=== PATIENT | male | born 1995 | race Caucasian/White ===

== ENCOUNTER 2017-04-28 11:08 | Emergency (ER) | payer OTHER ==
[~2017-04-28] VITALS: Ht 165.1 cm; Wt 89.0 kg
[2017-04-28 11:11] VITALS: Ht 165.1 cm; Wt 89.0 kg
[2017-04-28] MEDS ORDERED: KETOROLAC 60 MG INJ IM STA (11:49)
[2017-04-28] MEDS ORDERED: CLIN-73 PO (11:58)
[2017-04-28] MEDS ORDERED: HYDR-906 PO (11:58)
[2017-04-28] MEDS ORDERED: NAPR-688 PO (11:58)
[2017-04-28] MEDS ORDERED: morphine 10 MG INJ IM ONE (12:00)
[2017-04-28] MEDS ORDERED: DEXAMETHASONE (1 MG/ML PO SYG) PO ONE (12:00)
--- NOTE | 2017-04-28 12:26 | ERD ---
ER Documentation Chief Complaint Date/Time DATE: 04/28/17 TIME: 12:[address] x 3 days HPI This 21-year-old male presents with increasing sore throat 2 days. He is finding it difficult to speak now. He still swallowing his own secretions but is painful to do so. Says that he gets very bad tonsillitis about every 2 years. For this 1 he had gone to [facility] earlier because he thought it might be STD related and was given azithromycin as well as Rocephin. He has not been discharged with any antibiotics and he still has pain. No fevers. ROS All systems reviewed and are negative except as per history of present illness. Medications Home Meds Active Scripts Naproxen* (Naproxen*) 500 Mg Tablet, 500 MG PO BID Y for bid, #14 TAB Prov:CONRADO RIVAS DO 04/28/17 Hydrocodone/Acetaminophen ([place] 5-325 Tablet) 1 Each Tablet, 1 EACH PO Q6, #14 TAB Prov:CONRADO RIVAS DO 04/28/17 Clindamycin Hcl* (Clindamycin Hcl*) 300 Mg Capsule, 300 MG PO Q8 for 10 Days, CAP Prov:CONRADO RIVAS DO 04/28/17 Allergies Allergies: Coded Allergies: Penicillins (Verified Allergy, 10/26/13) PMhx/Soc History of Surgery: Yes (APPY) Hx Alcohol Use: Yes Hx Substance Use: No Hx Tobacco Use: No Smoking Status: Never smoker Physical Exam Vitals Vital Signs Date Time Temp Pulse Resp B/P Pulse Ox O2 Delivery O2 Flow Rate FiO2 04/28/17 11:11 98.2 99 18 121/69 99 Physical Exam Const: [] Mild distress, appears uncomfortable Eyes: Normal Conjunctiva ENT: Normal External Ears, Nose and Mouth. Tympanic membranes within normal limits, oropharynx with moderate bilateral tonsillar edema with tonsils approximately 4 mm from kissing each other. Mild exudate in the left tonsil. No he unilateral soft palate swelling. No uvular deviation. Neck: Full range of motion..~Cervical adenopathy, left Resp: Clear to auscultation bilaterally Cardio: Regular rate and rhythm, no murmurs Skin: No petechiae or rashes Results 24 hrs Current Medications Medications (Trade) Dose Ordered Sig/Anay Route PRN Reason Start Time Stop Time Status Last Admin Dose Admin Ketorolac Tromethamine (Toradol) 60 mg ONCE STAT IM 04/28/17 11:49 04/28/17 11:51 DC 04/28/17 12:09 Morphine Sulfate (morphine) 4 mg ONCE ONCE IM 04/28/17 12:00 04/28/17 12:01 DC 04/28/17 12:10 Dexamethasone (Decadron Intensol Liquid) 10 mg ONCE ONCE PO 04/28/17 12:00 04/28/17 12:20 DC Dexamethasone (Decadron) 10 mg ONCE ONCE PO 04/28/17 12:30 04/28/17 12:31 Procedures/MDM Tonsillitis without any signs of peritonsillar abscess. Patient is allergic to penicillin. Emergency room he was given 10 mg of liquid Decadron, Toradol and morphine IM injections. He is feeling much better. He is able to swallow his own secretions. We will discharge with 10 days of clindamycin as well as ENT follow-up in the next few days. Return precautions to the ER also given. Departure Diagnosis: Primary Impression: Acute bacterial tonsillitis Additional Impression: Acute pharyngitis Condition: Stable Patient Instructions: Adult Tonsillectomy, Strep Throat Referrals: MARIBELL FINK MD Additional Instructions: Call your primary care doctor TOMORROW for an appointment with an ENT during the next 1-2 days.See the doctor sooner or return here if your condition worsens before your appointment time. CONRADO RIVAS DO Apr 28, 2017 12:26
[2017-04-28] MEDS ORDERED: DEXAMETHASONE 10 MG/ML 1 ML INJ PO ONE (12:30)
== END 2017-04-28 13:04 | disposition home or self-care (01) ==
LOC: FTE 11:08
DX: J03.90 Acute tonsillitis, unspecified (principal)
CPT/HCPCS: 96372; 99284; J1100; J1885; J2270